=== PATIENT | male | born 1970 | race Caucasian/White ===

== ENCOUNTER 2021-10-22 13:28 | Outpatient (CLI) | payer OTHER ==
--- NOTE | 2021-10-22 14:25 | SLEEP CARE CONSULTATION ---
Information from patient questionnaire entered by Macy Mckeon MA. I have reviewed and concur with the information entered by Macy Mckeon MA. This document represents the service I personally performed and the decisions made by me, Roseline Sanabria ARNP. History of Present Illness Service Date and Time: 10/22/2021 1328 Reason for Visit: New patient Chief Complaint: reports: Insomnia, Unrefreshed sleep, Snoring, Excessive daytime sleepiness, Observed pauses in breathing, Fatigue, Frequent awakenings at night Date of Onset: 40 YEARS Usual bedtime: 11PM Time it takes to fall asleep: 10 TO 20 MIN Snores at night: Yes Observed to quit breathing while asleep: Yes Number of times waking at night: 3 TO 6 Reasons for waking at night: reports: Snoring, Pain, Bathroom, Other (UNKNOWN REASONS) Toss, Turn, or Twitch while sleeping: Yes Recalls having dreams: Yes Usually gets out of bed at: 7:30 TO 8:30 Feels refreshed in the morning: No Morning headache: No Sleepy or fatigued during the day: Yes Ever fallen asleep while driving: No Takes day naps: Yes (2-3 times a day; 1-3 hrs avg each) Dreams during day naps: No Prior sleep studies: Yes Year and Where: [facility] Additional HPI information: I had the pleasure of seeing ONI SANDOVAL today regarding the possibility of him having a sleep disorder. His current complaints are insomnia, unrefreshed sleep, snoring, excessive daytime sleepiness, observed pauses in breathing, fatigue and frequent night awakenings. He states he is not sleeping well. He keeps waking himself up snoring. He does not feel rested in the morning. He had a sleep study in the past, about 7 years ago. He was placed on a CPAP but he had to move from the area and ended up having to return it. He tried to get another sleep study to get set up again after his move but this did not happen. - Parasomnia Symptoms Ever been unable to move upon waking from sleep: No Walks in sleep: No Talks in sleep: Yes Ever acted out dreams in sleep: No Ever felt weak in the knees when startled or emotional: No Bothered by creepy, crawly, restless sensations in legs: Yes Problems with memory or concentration: Yes (both) Subjective Initial [place] Sleepiness Scale score: 13 (10/22/21) Past Medical History Past Medical History: reports: Hypertension, Diabetes, Anxiety, Depression, Other (CHRONIC PAIN; deviated nasal septum; sleep apnea; high cholesterol) Social History The patient's occupation is a [employer]. Patient is Single and lives in . Have you smoked in the past 12 months: Yes Cigarettes per day (20/pack): 20 Years of smokin Smoking Pack Years: 37.0 Alcohol use: Yes Alcohol amount and frequency: 1 beer every couple of months Caffeine use: Yes Caffeine amount and frequency: not often Family History Family history of sleep disordered breathing: No Family Hx Sleep Apnea: Father: Snoring (DAUGHTER), Other: Snoring Allergies and Home Medications Known drug allergies: No Drug allergies reviewed: Yes (NKDA) Home medication list reviewed: Yes Allergy and home medication list: Medications: InsulinLantus Trulicity Atorvastatin Duloxetine Pregabalin Enalapril Lamotrigine ER Methocarbamol Aspirin Melatonin Metoclopramide Metformin Review of Systems Weight loss over past 5 years: 7 lbs in last month with increasing exercise (walking) Cardiovascular: reports: high blood pressure Respiratory: reports: shortness of breath Urinary: reports: frequency, urgency, impotence Neurological: reports: gait or balance problems Psychiatric: reports: anxiety, depression Ear/Nose/Throat: reports: injury to nose Endocrine: reports: sluggishness, increased urination, unexplained weakness Musculoskeletal: reports: back pain, mobility problems Immunologic: denies: allergies to food or environment Physical Exam Vital signs obtained and entered by: Johanna MCKEON MA Blood Pressure: 112/64 (LEFT) Cuff size: wrist Heart Rate: 96 O2 Saturation: 97 Height: 5 ft 10 in Weight: 239 lb Body Mass Index: 34.2 BMI Classification: Obese Neck circumference: 19 (inches) Mouth and throat: narrow oropharynx Soft palate: long Hard palate: normal Uvula: normal Uvula visualization: 0% Mallampati Class IV Tongue: enlarged in size with teeth thompson on lateral edges Tonsils: small Neck: normal w/o lymphadenopathy or thyromegaly Heart: regular rate and rhythm Lungs: clear bilaterally Impression and Plan 1. Suspected Obstructive Sleep Apnea-Hypopnea Syndrome, as previously diagnosed and as still suggested by a history of loud and irregular snoring, observed cessation of breath while asleep, frequent awakening during the night, unrefreshed sleep, cognitive impairment, and excessive daytime sleepiness. Narrow oropharynx and obesity are common predisposing factors for obstructive sleep apnea-hypopnea syndrome. I recommend proceeding to polysomnography to confirm the diagnosis and to assess severity. If the patient has significant sleep disordered breathing, a manual CPAP titration study will also be performed to find the optimal treatment pressure. I informed the patient of what the sleep studies involve and after some discussion, obtained agreement to proceed. The pathophysiology of obstructive sleep apnea-hypopnea syndrome was discussed with the patient and health risks of cardiovascular and cerebrovascular disease if not treated. Risks of drowsy driving discussed in detail and patient advised to avoid long distance driving and to hide puller at the first sign of drowsiness. Patient agreed to plan. * Schedule polysomnography * Avoid long distance driving or driving when feeling sleepy. * Avoid alcohol, sedative and muscle relaxant around bedtime. * Attempt to lose weight. * Review instructions provided by trained office staff on how to prepare for the sleep study. * Return for follow-up after sleep study completed. Counseling Topics: Weight loss health impact Visit Type: In Office Time Spent with Patient (minutes): 31 Provider Statement: I spent 100% of the Face to Face Visit with the patient with greater than 50% spent counseling the patient and coordination of care.
[2021-10-22 14:26] VITALS: BP 112/64
== END 2021-10-22 13:29 | disposition home or self-care (01) ==
LOC: SC 13:28
PROVIDERS: ATTEND Nurse Practitioner Family
DX: G47.33 Obstructive sleep apnea (adult) (pediatric) (principal); I10 Essential (primary) hypertension; E11.9 Type 2 diabetes mellitus without complications; F17.210 Nicotine dependence, cigarettes, uncomplicated; E66.9 Obesity, unspecified; Z68.34 Body mass index [BMI] 34.0-34.9, adult
CPT/HCPCS: 99203; 99212

== ENCOUNTER 2021-10-24 10:36 | Emergency (ER) | payer OTHER ==
--- NOTE | 2021-10-24 11:24 | ED Physician Documentation ---
PD HPI SKIN - Stated complaint Stated Complaint: TOE INFECTION - Chief complaint Chief Complaint: Wound - History obtained from History obtained from: Patient (The patient has a small ulceration on the side of his left great toe for 3 weeks. Presumed a pressure from his shoes. No foreign body or puncture wounds. He had small ulceration there that has mostly healed back. He has had 1 to 2 days of mild redness and swelling. No drainage. ) - History of Present Illness Timing - onset: How many weeks ago (had had small ulceration at area of shoe rubbing medial great toe that had small blister then unroofed to ulcer and is healing in slowly and well until yesterday into today, when it is having some mild redness develop. Diabetec and concerned about infections. Has lost 2 toes previously.) Timing - details: Gradual onset, Still present Location: LLE Associated symptoms: No: Fever, Myalgias Similar symptoms before: Diagnosis (has had skin infections in feet that went into bone and deeper tissue nd has had 2 prior toe amputations. Concerned about getting at infectins earlier.) Recently seen: Not recently seen (but he did send photo of his toe to his Podiatric who directed him to come to the ER.) Review of Systems Constitutional: denies: Fever, Chills Skin: reports: Abrasion (s). denies: Laceration (s) Neurologic: reports: Numbness (neuropathy due to DM, with less sensation in legs/feet.) PD PAST MEDICAL HISTORY - Present Medications Home Medications: Ambulatory Orders Medication Instructions Recorded Confirmed Aspirin [[place] Aspirin] 81 mg PO DAILY 10/22/21 10/22/21 Atorvastatin Calcium 40 mg PO DAILY 10/22/21 10/22/21 Dulaglutide [Trulicity] 1.5 mg SQ ONCE 10/22/21 10/22/21 Duloxetine HCl [Cymbalta] 60 mg PO DAILY 10/22/21 10/22/21 Enalapril/Hydrochlorothiazide 20 mg PO DAILY 10/22/21 10/22/21 [Enalapril-Hctz 10-25 mg Tablet] Hydrocodone/Acetaminophen 10.325 mg PO 1-2XD 10/22/21 10/22/21 [Hydrocodone-Acetamin 10-325 mg] Insulin Glargine [Lantus Solostar] 20 units SQ DAILY 10/22/21 10/22/21 Melatonin 10 mg PO DAILY 10/22/21 10/22/21 Metformin HCl 1,000 mg PO 1-2XD 10/22/21 10/22/21 Metoclopramide [Reglan] 10 mg PO 5XD 10/22/21 10/22/21 Omeprazole Magnesium 20 mg PO DAILY 10/22/21 10/22/21 Pregabalin [Lyrica] 75 mg PO 1-2XD 10/22/21 10/22/21 Clindamycin [Cleocin] 300 mg PO TID 5 Days #15 cap 10/24/21 - Allergies Allergies/Adverse Reactions: Allergies Allergy/AdvReac Type Severity Reaction Status Date / Time No Known Drug Allergies Allergy Verified 10/24/21 11:06 PD ED PE NORMAL - Vitals Vital signs reviewed: Yes - General General: Alert and oriented X 3, No acute distress, Well developed/nourished - Derm Derm: Normal color, Warm and dry - Extremities Extremities: Other (left great toe medially with mostly healed small ulcerative area, with skin about at level, slightly thickened at edge. Mild rdness of area about 2 cm dimater. No discharge nor fluctuance. No bony tenderness. ) - Neuro Neuro: Alert and oriented X 3, No motor deficit, Normal speech, Other (decreased sensation in feet generally due to neuropathy. Has postion sense. ) Results - Vitals Vitals: Vital Signs - 24 hr 10/24/21 10/24/21 11:03 12:58 Temperature 36.0 C L Heart Rate 84 72 Respiratory 20 18 Rate Blood Pressure 142/80 H 134/80 H O2 Saturation 99 100 Oxygen O2 Source Room air - Labs Labs: Laboratory Tests 10/24/21 10/24/21 10/24/21 11:45 11:45 11:45 WBC 7.3 RBC 4.65 L Hgb 13.1 L Hct 39.2 L MCV 84.3 MCH 28.2 MCHC 33.4 RDW 13.6 Plt Count 306 MPV 9.2 Neut # (Auto) 4.7 Lymph # (Auto) 1.9 [place] # (Auto) 0.4 Eos # (Auto) 0.2 Baso # (Auto) 0.0 Absolute Nucleated RBC 0.00 Nucleated RBC % 0.0 ESR 20 Sodium 138 Potassium 5.1 H Chloride 109 Carbon Dioxide 24 Anion Gap 5.0 L BUN 31 H Creatinine 1.2 Estimated GFR (MDRD) 63 L Glucose 122 H Calcium 9.5 C-Reactive Protein < 1.0 - Rads (name of study) left great toe Radiology: Prelim report reviewed (no bony lesions.), See rad report PD MEDICAL DECISION MAKING - ED course Complexity details: reviewed results (xray okay and WBC, ESR, CRP normal. Appears just early skin infection. ), considered differential (mild local redness of toe at prior blister/ulcer. ), d/w patient Departure - Departure Disposition: 01 Home, Self Care Clinical Impression: Wound infection Skin ulcer of toe Qualifiers: Laterality: left Non-pressure ulcer stage: limited to breakdown of skin Qualified Code(s): L97.521 - Non-pressure chronic ulcer of other part of left foot limited to breakdown of skin Condition: Stable Record reviewed to determine appropriate education?: Yes Follow-Up: WILLIE [facility] PA [Primary Care Provider] - Renetta Zamora DPM [Provider Admit Priv/Credential] - Prescriptions: Clindamycin [Cleocin] 300 mg PO TID 5 Days #15 cap Comments: Your x-ray as well as blood count and inflammation markers called the CRP and sed rate are normal. No signs of a more deep-seated infection. We can treat with topical antibiotics that you have as well as oral clindamycin for early skin infection. Discharge Date/Time: 10/24/21 12:58
[2021-10-24] MEDS ORDERED: CLINDAMYCIN 150 MG CAPSULE PO STA (11:39)
[2021-10-24 11:49] LABS: BASOPHILS % (AUTO) 0.4 %; EOSINOPHILS # (AUTO) 0.2 10^3/uL (0.0-0.7); EOSINOPHILS % (AUTO) 3.3 %; HCT - HEMATOCRIT 39.2 % (42.0-52.0); HGB - HEMOGLOBIN 13.1 g/dL (14.0-18.0); LYMPHOCYTES # (AUTO) 1.9 10^3/uL (1.5-3.5); LYMPHOCYTES % (AUTO) 25.7 %; MEAN CORPUSCULAR HEMOGLOBIN 28.2 pg (27.0-31.0); MEAN CORPUSCULAR HGB CONC 33.4 g/dL (32.0-36.0); MEAN CORPUSCULAR VOLUME 84.3 fL (80.0-94.0); MEAN PLATELET VOLUME 9.2 fL (7.4-11.4); MONOCYTES # (AUTO) 0.4 10^3/uL (0.0-1.0); MONOCYTES % (AUTO) 5.5 %; NEUTROPHILS # (AUTO) 4.7 10^3/uL (1.5-6.6); NEUTROPHILS % (AUTO) 64.8 %; PLT - PLATELET COUNT 306 10^3/uL (130-450); RED BLOOD COUNT 4.65 10^6/uL (4.70-6.10); RED CELL DISTRIBUTION WIDTH 13.6 % (12.0-15.0); WHITE BLOOD COUNT 7.3 x10^3/uL (4.8-10.8)
--- NOTE | 2021-10-24 12:03 | XRAY Report ---
PROCEDURE: Toe(s) LT INDICATIONS: great toe TECHNIQUE: 3 views of the first toe(s) acquired. COMPARISON: None FINDINGS: Bones: No fractures or dislocations. No suspicious bony lesions. Soft tissues: No suspicious soft tissue densities. IMPRESSION: No visualized acute fracture or dislocation. However, occult injury cannot be excluded. Recommend giovani rt interval imaging follow-up in 7-10 days as clinically indicated for additional evaluation. Reviewed by: Emily Nobles MD on 10/24/2021 12:02 PM PDT Approved by: Emily Nobles MD on 10/24/2021 12:02 PM PDT Station ID: [id number]
[2021-10-24 12:10] LABS: BUN - BLOOD UREA NITROGEN 31 mg/dL (6-20); CALCIUM 9.5 mg/dL (8.5-10.3); CARBON DIOXIDE - CO2 24 mmol/L (21-32); CHLORIDE 109 mmol/L (101-111); CREATININE 1.2 mg/dL (0.6-1.2); GFR - MDRD 63 (>89); GLUCOSE 122 mg/dL (70-100); POTASSIUM 5.1 mmol/L (3.5-5.0); SODIUM 138 mmol/L (135-145)
[2021-10-24 12:11] LABS: CRP - C-REACTIVE PROTEIN < 1.0 mg/dL (0-1.0)
[2021-10-24 12:59] VITALS: BP 134/80
== END 2021-10-24 12:58 | disposition home or self-care (01) ==
LOC: ED 10:36
DX: L97.521 Non-pressure chronic ulcer of other part of left foot limited to breakdown of skin (principal)
CPT/HCPCS: 36415; 73660; 80048; 85025; 85651; 86140; 99282; 99284; A9270

== ENCOUNTER 2021-11-20 14:09 | Outpatient (CLI) | payer OTHER ==
--- NOTE | 2021-11-20 14:33 | SLEEP CARE CONSULTATION ---
Information from patient questionnaire entered by Carola Vera MA. I have reviewed and concur with the information entered by Carola Vrea MA. This document represents the service I personally performed and the decisions made by , Roseline Sanabria ARNP. History of Present Illness Service Date and Time: 11/20/2021 1404 Initial [place] Sleepiness Scale score: 13 (10/22/21) Current [place] Sleepiness Scale score: 14 Additional HPI information: ONI SANDOVAL returns for follow up and results of the recently performed polysomnography. I explained the pathophysiology behind obstructive sleep apnea. We then spent quite a bit of time discussing different treatment options. For mild obstructive sleep apnea, surgery and oral appliance are alternatives to nasal CPAP therapy but in moderate or severe cases, nasal CPAP is the most effective and reliable treatment. Because apnea is primarily in supine position, then positional management therapy could be effective. Methods discussed such as positioning with pillows to prevent supine sleep. I reviewed the impact of weight changes on sleep apnea and strongly recommended losing weight. After some discussion, the patient opted to go with the nasal CPAP therapy. Nasal autoCPAP set at 4-15 cmH20 will be ordered with rationale explained. A manual titration study will be ordered if unable to find optimal pressure with office adjustments. I explained how CPAP machine works and what to expect when using the machine. Using CPAP every night in order to get used to it was emphasized. Patient advised to put CPAP mask on before getting into bed so as not to fall asleep without CPAP. To assist acclimation to CPAP use, it could also be used for a short time during day while reading or watching TV. The patient was instructed to call the CPAP supplier to discuss any mechanical problem that may occur. If the mask given is uncomfortable or is difficult to keep on through the night even with adjustment, contact the CPAP supplier as many will replace with another mask style if notified before 30 days. If snoring or perceives is not getting enough air or too much air from the machine, notify this office. Patient does not drink alcohol. Patient was cautioned about risks of drowsy driving until sleepiness symptoms resolve. Patient denies drowsy driving. Sleep Study - Results Prior sleep studies: Yes Year and Where: [facility] Polysomnography/Home Sleep Study results: IMPRESSION: The quality of the study is good. The patient had normal sleep efficiency. The sleep architecture was abnormal for sleep fragmentation and reduced amount of time spent in slow wave sleep (N3). Respiratory monitoring showed severe obstructive sleep apnea-hypopnea (AHI = 37.7) associated with frequent arousals, oxyhemoglobin desaturation and mild hypoxia (nimco oxygen saturation of 81%). The respiratory events occurred more frequently during supine sleep (supine AHI = 72.8; non-supine = 29.39). Snore was loud in intensity. There was no significant periodic leg movement of sleep. Cardiac rhythm appeared to be of sinus arrhythmia. No abnormal behavior (parasomnia) observed during the night. Allergies and Home Medications Drug allergies reviewed: Yes (NKDA) Home medication list reviewed: Yes (Trulicity) Allergy and home medication list: Allergies No Known Drug Allergies Allergy (Verified 10/24/21 11:06) Review of Systems Review of systems same as previous: Yes (no changes) Physical Exam Vital signs obtained and entered by: NATALIO ABARCA Blood Pressure: 142/80 Cuff size: regular Heart Rate: 82 O2 Saturation: 95 Height: 5 ft 10 in Weight: 245 lb Body Mass Index: 35.2 BMI Classification: Obese Impression and Plan 1. Obstructive Sleep Apnea-Hypopnea Syndrome, severe, with lowest oxygen saturation of 81%. Obviously this is the cause of the patients symptoms of unrefreshed sleep, and excessive daytime sleepiness. Positive pressure therapy could benefit hypertension, diabetes, anxiety and depression. As mentioned above, the patient will be started on nasal autoCPAP therapy with pressure set at 4-15 cmH2O. Compliance guidelines also reviewed. A copy of compliance guidelines will be given for reference at check out. Because the apnea is more severe supine, I instructed to avoid sleeping supine using pillow positioning until able to start CPAP use. 2. Sinus arrhythmia, unspecified. Sinus arrhythmia noted on sleep study. Patient advised to follow-up with primary care doctor for further evaluation and/or treatment as necessary. 3. Hypoxemia, mild, with a nimco oxygen saturation of 81% and 66.5 minutes spent under 90%. His baseline oxygen saturation was normal with an average oxygen saturation of 91%. * Nasal auto CPAP therapy, pressure at 4-15 cm H2O. * Attempt to lose weight. * Avoid alcohol consumption near bedtime. * Avoid supine sleep until using CPAP. * The patient is again cautioned about driving until sleepiness completely resolves. * Return one month after CPAP obtained. I will assess response to therapy and compliance at that time. Counseling Topics: Spare mask, Weight loss health impact Visit Type: In Office Time Spent with Patient (minutes): 20 Provider Statement: I spent 100% of the Face to Face Visit with the patient with greater than 50% spent counseling the patient and coordination of care.
[2021-11-20 14:35] VITALS: BP 142/80
== END 2021-11-20 14:10 | disposition home or self-care (01) ==
LOC: SC 14:09
PROVIDERS: ATTEND Nurse Practitioner Family
DX: G47.33 Obstructive sleep apnea (adult) (pediatric) (principal); I49.8 Other specified cardiac arrhythmias; R09.02 Hypoxemia; E66.9 Obesity, unspecified; Z68.35 Body mass index [BMI] 35.0-35.9, adult
CPT/HCPCS: 99212; 99213

== ENCOUNTER 2021-12-03 16:13 | Emergency (ER) | payer MEDICARE, OTHER ==
[2021-12-03 18:08] LABS: BASOPHILS # (AUTO) 0.1 10^3/uL (0.0-0.1); BASOPHILS % (AUTO) 0.4 %; EOSINOPHILS # (AUTO) 0.4 10^3/uL (0.0-0.7); HCT - HEMATOCRIT 34.4 % (42.0-52.0); HGB - HEMOGLOBIN 11.4 g/dL (14.0-18.0); LYMPHOCYTES # (AUTO) 3.1 10^3/uL (1.5-3.5); LYMPHOCYTES % (AUTO) 26.2 %; MEAN CORPUSCULAR HEMOGLOBIN 27.9 pg (27.0-31.0); MEAN CORPUSCULAR HGB CONC 33.1 g/dL (32.0-36.0); MEAN CORPUSCULAR VOLUME 84.1 fL (80.0-94.0); MEAN PLATELET VOLUME 9.1 fL (7.4-11.4); MONOCYTES # (AUTO) 0.7 10^3/uL (0.0-1.0); MONOCYTES % (AUTO) 5.8 %; NEUTROPHILS # (AUTO) 7.7 10^3/uL (1.5-6.6); NEUTROPHILS % (AUTO) 64.4 %; PLT - PLATELET COUNT 287 10^3/uL (130-450); RED BLOOD COUNT 4.09 10^6/uL (4.70-6.10); RED CELL DISTRIBUTION WIDTH 12.9 % (12.0-15.0); WHITE BLOOD COUNT 11.9 x10^3/uL (4.8-10.8)
[2021-12-03 18:12] LABS: PT - PROTHROMBIN TIME 11.2 secs (9.9-12.6)
--- NOTE | 2021-12-03 18:12 | ED Physician Documentation ---
PD HPI ABD PAIN - Stated complaint Stated Complaint: BLOOD IN STOOL - Chief complaint Chief Complaint: Abd Pain - History obtained from History obtained from: Patient - Additional information Additional information: 51-year-old gentleman with type 2 diabetes on both oral medications and insulin started Clindamycin for a dental issue about 6 days ago at about 3 to 4 days ago developed bloody diarrhea with left lower quadrant pain. States his last colonoscopy was about 5 years ago and was normal for him. He denies fevers or nausea with this. He is never had this before. He declines pain medication on initial evaluation. Review of Systems Constitutional: denies: Fever, Chills Cardiac: reports: Reviewed and negative Respiratory: reports: Reviewed and negative PD PAST MEDICAL HISTORY - Past Medical History Cardiovascular: Hypertension Neuro: Peripheral neuropathy Endocrine/Autoimmune: Type 2 diabetes Psych: Depression Musculoskeletal: Chronic back pain - Past Surgical History Past Surgical History: Yes General: Appendectomy Ortho: Amputation - Present Medications Home Medications: Ambulatory Orders Medication Instructions Recorded Confirmed Aspirin [[place] Aspirin] 81 mg PO DAILY 10/22/21 12/03/21 Atorvastatin Calcium 40 mg PO DAILY 10/22/21 12/03/21 Dulaglutide [Trulicity] 1.5 mg SQ Q7D 10/22/21 12/03/21 Duloxetine HCl [Cymbalta] 60 mg PO DAILY 10/22/21 12/03/21 Hydrocodone/Acetaminophen 10.325 mg PO 1-2XD 10/22/21 10/22/21 [Hydrocodone-Acetamin 10-325 mg] Insulin Glargine [Lantus Solostar] 20 units SQ DAILY 10/22/21 12/03/21 Melatonin 10 mg PO HS 10/22/21 12/03/21 Metformin HCl 1,000 mg PO BIDWM 10/22/21 12/03/21 Metoclopramide [Reglan] 10 mg PO 5XD 10/22/21 10/22/21 Omeprazole Magnesium 20 mg PO DAILY 10/22/21 12/03/21 Pregabalin [Lyrica] 75 mg PO TID 10/22/21 12/03/21 Enalapril Maleate [Vasotec] 20 mg PO DAILY 12/03/21 12/03/21 cephALEXin [Keflex] 500 mg PO Q6H #28 cap 12/03/21 metroNIDAZOLE [Flagyl] 500 mg PO TID 7 Days #21 tablet 12/03/21 - Allergies Allergies/Adverse Reactions: Allergies Allergy/AdvReac Type Severity Reaction Status Date / Time No Known Drug Allergies Allergy Verified 12/03/21 16:53 - Social History Does the pt smoke?: No Smoking Status: Never smoker - POLST Patient has POLST: No PD ED PE NORMAL - Vitals Vital signs reviewed: Yes - General General: Alert and oriented X 3, No acute distress - HEENT HEENT: PERRL, EOMI - Neck Neck: Supple, no meningeal sign, No bony TTP - Cardiac Cardiac: RRR, No murmur - Respiratory Respiratory: No respiratory distress - Abdomen Abdomen: Normal bowel sounds, Other (Focally tender in the left lower quadrant without surgical signs, well-healed remote appendectomy scar, a vertical scar from age 23.) - Back Back: No CVA TTP, No spinal TTP - Derm Derm: Normal color, Warm and dry - Extremities Extremities: No edema, No calf tenderness / cord - Neuro Neuro: Alert and oriented X 3, Normal speech Results - Vitals Vitals: Vital Signs - 24 hr 12/03/21 12/03/21 16:53 18:21 Temperature 36.5 C Heart Rate 90 76 Respiratory 16 17 Rate Blood Pressure 125/64 126/75 O2 Saturation 96 94 Oxygen O2 Source Room air - Labs Labs: Laboratory Tests 12/03/21 12/03/21 12/03/21 17:57 17:57 17:57 WBC 11.9 H RBC 4.09 L Hgb 11.4 L Hct 34.4 L MCV 84.1 MCH 27.9 MCHC 33.1 RDW 12.9 Plt Count 287 MPV 9.1 Neut # (Auto) 7.7 H Lymph # (Auto) 3.1 [place] # (Auto) 0.7 Eos # (Auto) 0.4 Baso # (Auto) 0.1 Absolute Nucleated RBC 0.00 Nucleated RBC % 0.0 PT 11.2 INR 1.0 Sodium Potassium Chloride Carbon Dioxide Anion Gap BUN Creatinine Estimated GFR (MDRD) Glucose Calcium Total Bilirubin AST ALT Alkaline Phosphatase Total Protein Albumin Globulin Albumin/Globulin Ratio Lipase Blood Type A POSITIVE Blood Type Recheck Antibody Screen NEGATIVE 12/03/21 12/03/21 17:57 19:22 WBC RBC Hgb Hct MCV MCH MCHC RDW Plt Count MPV Neut # (Auto) Lymph # (Auto) [place] # (Auto) Eos # (Auto) Baso # (Auto) Absolute Nucleated RBC Nucleated RBC % PT INR Sodium 128 L Potassium 4.0 Chloride 94 L Carbon Dioxide 26 Anion Gap 8.0 BUN 15 Creatinine 1.8 H Estimated GFR (MDRD) 40 L Glucose 118 H Calcium 8.8 Total Bilirubin 0.3 AST 23 ALT 19 Alkaline Phosphatase 133 H Total Protein 6.3 L Albumin 3.5 Globulin 2.8 Albumin/Globulin Ratio 1.3 Lipase 175 H Blood Type Blood Type Recheck A POSITIVE Antibody Screen PD MEDICAL DECISION MAKING - ED course ED course: 51-year-old gentleman on clindamycin for a few days now has bloody diarrhea and left lower quadrant pain. He was unable to provide a stool sample here. This is most consistent with a colitis proven on CT showing:: IMPRESSION: 1. Finding is suggestive of infectious or inflammatory colitis involving descending colon and sigmoid colon. Superimposed diverticulitis involving proximal sigmoid colon cannot be entirely excluded. There is no abscess collection. No free fluid of free air. 2. No bowel obstruction. No stomach or small bowel wall thickening. Departure - Departure Disposition: 01 Home, Self Care Clinical Impression: Colitis Condition: Good Record reviewed to determine appropriate education?: Yes Instructions: ED Gastroenteritis Bacterial Prescriptions: metroNIDAZOLE [Flagyl] 500 mg PO TID 7 Days #21 tablet cephALEXin [Keflex] 500 mg PO Q6H #28 cap Comments: I sent prescription electronically to [facility] in [place]. Follow-up with your primary care physician, next available appointment. Return for new or worsening symptoms especially uncontrolled pain, high fever, or if not improving in the next few days. CT results as follows
[2021-12-03 18:18] LABS: ALBUMIN 3.5 g/dL (3.2-5.5); ALBUMIN/GLOBULIN RATIO 1.3 (1.0-2.2); BILIRUBIN,TOTAL 0.3 mg/dL (0.2-1.0); CALCIUM 8.8 mg/dL (8.5-10.3); CREATININE 1.8 mg/dL (0.6-1.2); TOTAL PROTEIN 6.3 g/dL (6.7-8.2)
[2021-12-03] MEDS ORDERED: iohexoL-300 100 ML VIAL ONE (18:29)
[2021-12-03] MEDS ORDERED: iohexoL-300 100 ML VIAL IVP ONE (18:55)
--- NOTE | 2021-12-03 19:19 | CT Report ---
PROCEDURE: ABDOMEN/PELVIS W INDICATIONS: IV only, LLQ pain, and hematochezia CONTRAST: 100ml Omnipaque 300 TECHNIQUE: After the administration of IV contrast, 5 mm thick sections acquired from the diaphragms to the symp hysis. 5 mm thick coronal and sagittal reformats were acquired. For radiation dose reduction, the f ollowing was used: automated exposure control, adjustment of mA and/or kV according to patient size. COMPARISON: None. FINDINGS: Image quality: Excellent. ABDOMEN: Lung bases: Lung bases are clear. Heart size is normal. Solid organs: Liver and spleen are normal in size and enhancement. Gallbladder is within normal vázquez its. Biliary system is non dilated. Pancreas enhances normally. No adrenal nodules. Kidneys demon strate normal size and enhancement, without hydronephrosis. Peritoneum and bowel: There is no bowel obstruction. No gastric or small bowel wall thickening. Appen deshaun is not visualized likely represent prior appendectomy. There is significant descending colon and sigmoid colon wall thickening with pericolonic fat stranding and narrowing of the lumen most notably involving proximal sigmoid colon in left lower quadrant series 3 image 75. No abscess collection. No free fluid of free air. Nodes and vessels: No retroperitoneal or mesenteric adenopathy by size criteria. Aorta and inferior vena cava are normal in size. Miscellaneous: No ventral hernias. PELVIS: Genitourinary: Bladder wall thickness is normal. Miscellaneous: No inguinal hernias or adenopathy. Bones: No suspicious bony lesions. No vertebral body compression fractures. IMPRESSION: 1. Finding is suggestive of infectious or inflammatory colitis involving descending colon and sigmoid colon. Superimposed diverticulitis involving proximal sigmoid colon cannot be entirely excluded. The re is no abscess collection. No free fluid of free air. 2. No bowel obstruction. No stomach or small bowel wall thickening. Reviewed by: Naga Miranda MD on 12/03/2021 7:18 PM PDT Approved by: Naga Miranda MD on 12/03/2021 7:18 PM PDT Station ID: [id number]
[2021-12-03] MEDS ORDERED: metroNIDAZOLE 250 MG TABLET PO STA (19:43)
[2021-12-03] MEDS ORDERED: cephALEXin 250 MG CAPSULE PO STA (19:43)
[2021-12-03 20:00] VITALS: BP 140/72
== END 2021-12-03 19:59 | disposition home or self-care (01) ==
LOC: ED 16:13
DX: K52.9 Noninfective gastroenteritis and colitis, unspecified (principal)
CPT/HCPCS: 36415; 74177; 80053; 83690; 85025; 85610; 86850; 86900; 86901; 99282; 99284; A9270; Q9967

== ENCOUNTER 2021-12-06 17:05 | Emergency (ER) | payer MEDICARE ==
[2021-12-06] MEDS ORDERED: KETOROLAC 30 MG/ML VIAL IVP STA (17:35)
[2021-12-06] MEDS ORDERED: iohexoL-300 100 ML VIAL ONE (17:40)
[2021-12-06 17:45] LABS: BASOPHILS % (AUTO) 0.7 %; EOSINOPHILS # (AUTO) 0.2 10^3/uL (0.0-0.7); HCT - HEMATOCRIT 36.2 % (42.0-52.0); HGB - HEMOGLOBIN 11.6 g/dL (14.0-18.0); LYMPHOCYTES # (AUTO) 1.8 10^3/uL (1.5-3.5); LYMPHOCYTES % (AUTO) 30.5 %; MEAN CORPUSCULAR HEMOGLOBIN 27.2 pg (27.0-31.0); MEAN PLATELET VOLUME 9.1 fL (7.4-11.4); MONOCYTES # (AUTO) 0.5 10^3/uL (0.0-1.0); MONOCYTES % (AUTO) 8.2 %; NEUTROPHILS # (AUTO) 3.4 10^3/uL (1.5-6.6); NEUTROPHILS % (AUTO) 56.4 %; PLT - PLATELET COUNT 301 10^3/uL (130-450); RED BLOOD COUNT 4.26 10^6/uL (4.70-6.10); RED CELL DISTRIBUTION WIDTH 12.8 % (12.0-15.0); WHITE BLOOD COUNT 5.9 x10^3/uL (4.8-10.8)
[2021-12-06 17:56] LABS: ALBUMIN 3.8 g/dL (3.2-5.5); ALBUMIN/GLOBULIN RATIO 1.4 (1.0-2.2); BILIRUBIN,TOTAL 0.3 mg/dL (0.2-1.0); CREATININE 1.7 mg/dL (0.6-1.2); POTASSIUM 4.2 mmol/L (3.5-5.0); TOTAL PROTEIN 6.6 g/dL (6.7-8.2)
[2021-12-06] MEDS ORDERED: DIATRIZOATE MEGLU/DIATRIZO SOD 30 ML BOTTLE PO ONE ×2 (18:08→19:45)
[2021-12-06 18:48] LABS: BILIRUBIN,URINE NEGATIVE (NEGATIVE); GLUCOSE, URINE (UA) NEGATIVE (NEGATIVE); KETONES,URINE (UA) NEGATIVE (NEGATIVE); LEUKOCYTE ESTERASE, URINE NEGATIVE (NEGATIVE); NITRITE,URINE NEGATIVE (NEGATIVE); OCCULT BLOOD,URINE NEGATIVE (NEGATIVE); PROTEIN,URINE TRACE mg/dL (NEGATIVE); UROBILINOGEN,URINE 0.2 (NORMAL) E.U./dL (NORMAL)
[2021-12-06 18:52] LABS: CLARITY,URINE CLEAR (CLEAR)
[2021-12-06] MEDS ORDERED: iohexoL-300 100 ML VIAL IVP ONE (19:47)
--- NOTE | 2021-12-06 20:06 | CT Report ---
PROCEDURE: ABDOMEN/PELVIS W INDICATIONS: increased abd pain, colitis 3 days ago CONTRAST: 100 ml OMNI 300 TECHNIQUE: After the administration of oral and intravenous contrast, 5 mm thick sections acquired from the diap hragms to the symphysis. 5 mm thick coronal and sagittal reformats were acquired. For radiation dos e reduction, the following was used: automated exposure control, adjustment of mA and/or kV accordin g to patient size. COMPARISON: CT abdomen pelvis 12/03/2021 FINDINGS: Image quality: Excellent. Images are denoted as (series #/image #). Visualized lung bases: No pleural effusion. Liver and biliary tree: No suspect focal hepatic lesion. No biliary ductal dilation. Gallbladder: No radiopaque cholelithiasis. Spleen: Unremarkable. Pancreas: Unremarkable. Adrenal glands: Unremarkable. Kidneys and ureters: No hydronephrosis. Gastrointestinal tract: No bowel obstruction. Findings of sigmoid and descending colon colitis appear nearly resolved or resolved. Peritoneal cavity: No free air or free fluid. No abscess. Bladder: Unremarkable. Pelvic organs: Unremarkable CT appearance. Vasculature: No abdominal aortic aneurysm. Musculoskeletal: Degenerative change of the spine. L4-L5 pars defects IMPRESSION: 1. Findings of sigmoid and descending colon colitis appear nearly resolved or resolved. 2. No abscess or other new abnormality identified within the abdomen or pelvis. Reviewed by: Nico Guallpa MD on 12/06/2021 8:04 PM PDT Approved by: Nico Guallpa MD on 12/06/2021 8:04 PM PDT Station ID: [id number]
--- NOTE | 2021-12-06 21:22 | ED Physician Documentation ---
History of Present Illness - Stated complaint Stated Complaint: KIDNEY PAIN - Chief complaint Chief Complaint: Abd Pain - History obtained from History obtained from: Patient - History of Present Illness Timing: Today Pain level max: 6 Pain level now: 5 - Additonal information Additional information: 51-year-old male presents to the emergency department stating he was recently diagnosed with colitis and placed on antibiotics. He states he had been doing better but felt pain in his back today. He has Vicodin at home for pain but did not take any. No numbness or tingling. No loss of bowel or bladder control. No trauma. No fevers. He is concerned about potential worsening of the colitis. Worse with movement, better with rest. No nausea or vomiting. No urinary symptoms. Review of Systems Constitutional: denies: Fever, Chills Respiratory: denies: Cough GI: denies: Vomiting, Diarrhea : denies: Dysuria, Frequency, Hesitancy Skin: denies: Rash Musculoskeletal: denies: Neck pain Neurologic: denies: Headache PD PAST MEDICAL HISTORY - Past Medical History Cardiovascular: Hypertension Respiratory: Sleep apnea, CPAP use Neuro: Peripheral neuropathy Endocrine/Autoimmune: Type 2 diabetes GI: None : Other HEENT: None Psych: Depression Musculoskeletal: Chronic back pain Derm: None - Past Surgical History Past Surgical History: Yes General: Appendectomy Ortho: Amputation - Present Medications Home Medications: Ambulatory Orders Medication Instructions Recorded Confirmed Aspirin [[place] Aspirin] 81 mg PO DAILY 10/22/21 12/03/21 Atorvastatin Calcium 40 mg PO DAILY 10/22/21 12/03/21 Dulaglutide [Trulicity] 1.5 mg SQ Q7D 10/22/21 12/03/21 Duloxetine HCl [Cymbalta] 60 mg PO DAILY 10/22/21 12/03/21 Hydrocodone/Acetaminophen 10.325 mg PO 1-2XD 10/22/21 10/22/21 [Hydrocodone-Acetamin 10-325 mg] Insulin Glargine [Lantus Solostar] 20 units SQ DAILY 10/22/21 12/03/21 Melatonin 10 mg PO HS 10/22/21 12/03/21 Metformin HCl 1,000 mg PO BIDWM 10/22/21 12/03/21 Metoclopramide [Reglan] 10 mg PO 5XD 10/22/21 10/22/21 Omeprazole Magnesium 20 mg PO DAILY 10/22/21 12/03/21 Pregabalin [Lyrica] 75 mg PO TID 10/22/21 12/03/21 Enalapril Maleate [Vasotec] 20 mg PO DAILY 12/03/21 12/03/21 cephALEXin [Keflex] 500 mg PO Q6H #28 cap 12/03/21 metroNIDAZOLE [Flagyl] 500 mg PO TID 7 Days #21 tablet 12/03/21 - Allergies Allergies/Adverse Reactions: Allergies Allergy/AdvReac Type Severity Reaction Status Date / Time No Known Drug Allergies Allergy Verified 12/06/21 17:15 - Social History Does the pt smoke?: No Smoking Status: Never smoker Does the pt drink ETOH?: Yes Does the pt have substance abuse?: No - Immunizations Immunizations are current?: Yes - POLST Patient has POLST: No PD ED PE NORMAL - Vitals Vital signs reviewed: Yes - General General: Alert and oriented X 3, No acute distress - HEENT HEENT: Moist mucous membranes - Neck Neck: Supple, no meningeal sign - Cardiac Cardiac: RRR - Respiratory Respiratory: No respiratory distress, Clear bilaterally - Abdomen Abdomen: Soft, Non tender, Non distended - Back Back: No CVA TTP, No spinal TTP, Other (No midline tenderness to palpation or percussion. No step-off or deformity.) - Derm Derm: Warm and dry - Extremities Extremities: No edema, No calf tenderness / cord - Neuro Neuro: Alert and oriented X 3, No motor deficit, No sensory deficit, Other (Normal bilateral lower extremity patellar and ankle jerk reflexes. Normal great toe extension bilaterally. no saddle anesthesia) Results - Vitals Vitals: Vital Signs - 24 hr 12/06/21 12/06/21 12/06/21 17:10 19:15 20:54 Temperature 36.5 C 36.9 C Heart Rate 77 63 66 Respiratory 14 18 16 Rate Blood Pressure 161/82 H 189/95 H 156/70 H O2 Saturation 100 99 100 12/06/21 21:36 Temperature 36.7 C Heart Rate 68 Respiratory 14 Rate Blood Pressure 175/89 H O2 Saturation 98 Oxygen O2 Source Room air - Labs Labs: Laboratory Tests 12/06/21 12/06/21 12/06/21 17:39 17:39 18:36 WBC 5.9 RBC 4.26 L Hgb 11.6 L Hct 36.2 L MCV 85.0 MCH 27.2 MCHC 32.0 RDW 12.8 Plt Count 301 MPV 9.1 Neut # (Auto) 3.4 Lymph # (Auto) 1.8 Cataño # (Auto) 0.5 Eos # (Auto) 0.2 Baso # (Auto) 0.0 Absolute Nucleated RBC 0.00 Nucleated RBC % 0.0 Sodium 134 L Potassium 4.2 Chloride 98 L Carbon Dioxide 28 Anion Gap 8.0 BUN 14 Creatinine 1.7 H Estimated GFR (MDRD) 42 L Glucose 89 Calcium 9.0 Total Bilirubin 0.3 AST 31 ALT 25 Alkaline Phosphatase 123 H Total Protein 6.6 L Albumin 3.8 Globulin 2.8 Albumin/Globulin Ratio 1.4 Lipase 64 H Urine Color YELLOW Urine Clarity CLEAR Urine pH 6.0 Ur Specific [place] 1.010 Urine Protein TRACE Urine Glucose (UA) NEGATIVE Urine Ketones NEGATIVE Urine Occult Blood NEGATIVE Urine Nitrite NEGATIVE Urine Bilirubin NEGATIVE Urine Urobilinogen 0.2 (NORMAL) Ur Leukocyte Esterase NEGATIVE Ur Microscopic Review NOT INDICATED Urine Culture Comments NOT INDICATED - Rads (name of study) CT abdomen pelvis Radiology: Final report received, EMP read contemporaneously, See rad report PD MEDICAL DECISION MAKING - ED course Complexity details: reviewed results, re-evaluated patient, considered differential, d/w patient ED course: CT abdomen pelvis shows an improving colitis with no evidence of perforation or abscess. Pain well controlled. Patient feels better. No evidence of cauda equina, epidural abscess. No evidence of fracture. He states he has Vicodin at home for pain and does not require anything for pain. Patient is well- appearing, nontoxic. Afebrile. No neurological deficits. No loss of bowel or bladder control. Patient counseled regarding signs and symptoms for which I believe and urgent re-evaluation would be necessary. Patient with good understanding of and agreement to plan and is comfortable going home at this time This document was made in part using voice recognition software. While efforts are made to proofread this document, sound alike and grammatical errors may occur. Departure - Departure Disposition: 01 Home, Self Care Clinical Impression: Colitis Back pain Qualifiers: Back pain location: low back pain Chronicity: acute Back pain laterality: bilateral Sciatica presence: without sciatica Qualified Code(s): M54.50 - Low back pain, unspecified Condition: Good Instructions: ED Diverticulitis, ED Neck Back Pain General Follow-Up: WILLIE NORTH PA [Primary Care Provider] - Within 1 week Comments: Please follow-up with your doctor for further care. Continue your antibiotics at home. Your CT scan shows that your colitis is improving. Please return if you worsen. Discharge Date/Time: 12/06/21 21:37
[2021-12-06 22:33] VITALS: BP 175/89
== END 2021-12-06 21:37 | disposition home or self-care (01) ==
LOC: ED 17:05
DX: K52.9 Noninfective gastroenteritis and colitis, unspecified (principal); M54.50 Low back pain, unspecified; I10 Essential (primary) hypertension; E11.42 Type 2 diabetes mellitus with diabetic polyneuropathy; Z79.85 Long-term (current) use of injectable non-insulin antidiabetic drugs; Z79.4 Long term (current) use of insulin; Z79.84 Long term (current) use of oral hypoglycemic drugs
CPT/HCPCS: 36415; 74177; 80053; 81003; 83690; 85025; 96374; 99282; 99284; Q9963; Q9967; 81001; 87086

== ENCOUNTER 2021-12-17 08:00 | Outpatient (CLI) | payer MEDICARE, OTHER ==
--- NOTE | 2021-12-17 13:47 | XRAY Report ---
PROCEDURE: Hip w/Pelvis 1V RT INDICATIONS: R HIP PX TECHNIQUE: AP pelvis with lateral view(s) of the right hip(s). COMPARISON: None. FINDINGS: Bones: No definite fractures or dislocations. A lucency of the superomedial acetabulum is seen, but is probably a soft tissue line. Pelvic ring otherwise appears intact. No suspicious bony lesions. Soft tissues: The visualized bowel gas pattern is normal. No suspicious soft tissue calcifications. IMPRESSION: No definite fracture identified. A lucency of the superomedial acetabulum is probably a soft tissue line, however given persistent pain, consider CT to exclude a nondisplaced fracture if cl inically indicated. Reviewed by: Pierre Ricardo on 12/17/2021 1:46 PM PST Approved by: Pierre Ricardo on 12/17/2021 1:46 PM [facility] Station ID: [id number]
== END 2021-12-17 23:59 | disposition home or self-care (01) ==
LOC: DI.N 08:00
PROVIDERS: ATTEND Physician Assistant
DX: M25.551 Pain in right hip (principal)